=== PATIENT | female | born 1930 | race Caucasian/White ===

== ENCOUNTER → 2016-04-23 | Outpatient (CLI) | payer BC ==
[~2016-04-23] MED LIST: ACET1TAB84 PO; ASPEC81 PO; CALC500C70 PO; CHOL100010 PO; CLR10 PO; ESTCR PV; LEVO-217 PO; LISI-729 PO; LPT/40 PO; METO-217 PO; MOME50SP5 NAE; MULTTAB58 PO; NXM/40 PO; OMEG10007 PO; TIOTCAP INH; ZOLE5INJ IV
== END | disposition home or self-care (01) ==
LOC: C.LAB1850 11:01
PROVIDERS: ATTEND Internal Medicine Rheumatology
DX: M81.0 Age-related osteoporosis without current pathological fracture (principal); E61.8 Deficiency of other specified nutrient elements; S42.90XA Fracture of unspecified shoulder girdle, part unspecified, initial encounter for closed fracture; X58.XXXA Exposure to other specified factors, initial encounter

== ENCOUNTER → 2016-05-19 | Outpatient (CLI) | payer BC ==
--- NOTE | 2016-05-19 14:56 | DIAGNOSTIC IMAGING REPORT ---
CHEST 2 VIEWS ROUTINE CLINICAL HISTORY: R05 [id number] dyspnea COMPARISON STUDY: 06/19/2012 FINDINGS: Stable emphysematous change. Chronic apical fibrotic change. Minimal left basilar infiltrative process. Lungs otherwise appear clear. IMPRESSION: Small parenchymal infiltrate left base. This is superimposed upon chronic emphysematous and fibrotic changes. Electronically signed by: Mo Hilton M.D. 05/19/2016 2:55 PM Dictated Date/Time: 05/19/2016 2:54 PM
--- NOTE | 2016-05-19 15:43 | DIAGNOSTIC IMAGING REPORT ---
Venous Doppler left leg LEFT VENOUS DOPP LOWER EXT UNILAT CLINICAL HISTORY: Nodule pain TECHNIQUE: Real-time and venous Doppler COMPARISON STUDY: 09/28/2015 FINDINGS: Normal venous Doppler left leg. At the site of clinically palpable nodularity, there is no ultrasonic abnormality. IMPRESSION: 1. Normal venous Doppler left leg. 2. Patient describes a nodule medial aspect proximal calf. There is no ultrasonic abnormality at this site Electronically signed by: Mo Hilton M.D. 05/19/2016 3:42 PM Dictated Date/Time: 05/19/2016 3:41 PM
== END | disposition home or self-care (01) ==
LOC: C.ULTRBC 14:23
PROVIDERS: ATTEND Internal Medicine Geriatric Medicine
DX: M79.605 Pain in left leg (principal); R05 Cough

== ENCOUNTER → 2016-06-12 | Outpatient (CLI) | payer BC ==
--- NOTE | 2016-06-12 15:52 | DIAGNOSTIC IMAGING REPORT ---
CHEST 2 VIEWS ROUTINE HISTORY: Follow-up pneumonia. COMPARISON: Chest 05/19/2016. FINDINGS: No pleural effusions. No pneumothorax. There are few linear densities at the left lung base suggestive of scarring. No focal lung consolidations to suggest pneumonia. No evidence for pulmonary edema. The lungs remain hyperexpanded. The heart is borderline enlarged. Cholecystectomy. Old anterior wedge-shaped deformities within the upper thoracic spine. IMPRESSION: A few linear scarlike densities at the left lung base. No focal lung consolidations to suggest pneumonia. Electronically signed by: Kamari Monroe M.D. 06/12/2016 3:51 PM Dictated Date/Time: 06/12/2016 3:44 PM
== END | disposition home or self-care (01) ==
LOC: C.RADBC 15:21
PROVIDERS: ATTEND Internal Medicine
DX: J18.9 Pneumonia, unspecified organism (principal)

== ENCOUNTER → 2016-09-22 | Outpatient (CLI) | payer BC ==
--- NOTE | 2016-09-22 15:47 | DIAGNOSTIC IMAGING REPORT ---
LEFT KNEE 4 OR MORE VIEWS CLINICAL HISTORY: W19.XXXA [id number] Left knee [id number] trauma. Pain. COMPARISON: None. DISCUSSION: Mild chondrocalcinosis. Mild degenerative change all major joint compartments. Soft tissue vascular calcification. No well-defined acute bony abnormality. No significant joint effusion by plain film criteria. There is no evidence for soft tissue swelling. IMPRESSION: Mild degenerative change. Chondrocalcinosis. No acute bony abnormality. Electronically signed by: Mo Hilton M.D. 09/22/2016 3:46 PM Dictated Date/Time: 09/22/2016 3:45 PM
== END | disposition home or self-care (01) ==
LOC: C.RAD1850 15:14
PROVIDERS: ATTEND Nurse Practitioner Adult Health
DX: M25.562 Pain in left knee (principal); W19.XXXA Unspecified fall, initial encounter

== ENCOUNTER → 2016-10-29 | Outpatient (CLI) | payer BC ==
--- NOTE | 2016-10-29 12:43 | MAMMOGRAPHY REPORT ---
BILATERAL DIGITAL SCREENING MAMMOGRAM WITH CAD: 10/29/2016 CLINICAL HISTORY: Routine screening. Patient has no complaints. TECHNIQUE: Bilateral CC and MLO views were obtained. Current study was also evaluated with a Compute r Aided Detection (CAD) system. COMPARISON: Comparison is made to exams dated: 10/29/2015 mammogram, 10/23/2014 mammogram, 10/20/2013 m ammogram, 10/19/2012 mammogram, 10/15/2011 mammogram, and 10/04/2010 mammogram - [facility]ter. BREAST COMPOSITION: The tissue of both breasts is almost entirely fatty. FINDINGS: There are mild vascular calcifications in the breasts. No suspicious mass, architectural d istortion or cluster of microcalcifications is seen. IMPRESSION: ACR BI-RADS CATEGORY 1: NEGATIVE There is no mammographic evidence of malignancy. A 1 year screening mammogram is recommended. The pa tient will receive written notification of the results. Approximately 10% of breast cancers are not detected with mammography. A negative mammographic report should not delay biopsy if a clinically suggestive mass is present. Bhumi Pederson M.D. ay/:10/29/2016 09:37:42 Mail Officer: Heena TELLEZ(R)([place]andler)([place]), [facility] letter sent: Normal 1/2 BI-RADS Code: ACR BI-RADS Category 1: Negative
== END | disposition home or self-care (01) ==
LOC: C.MAMM 08:47
PROVIDERS: ATTEND Obstetrics & Gynecology
DX: Z12.31 Encounter for screening mammogram for malignant neoplasm of breast (principal)

== ENCOUNTER → 2016-10-30 | Outpatient (CLI) | payer BC ==
--- NOTE | 2016-10-30 14:37 | DIAGNOSTIC IMAGING REPORT ---
LEFT VENOUS DOPP LOWER EXT UNILAT CLINICAL HISTORY: 86 years-old Female presenting with LEFT LOWER LEG PAIN AND SWELLING. TECHNIQUE: Real-time grayscale and color and spectral Doppler ultrasound imaging of the veins of the left lower extremity was performed. Compression and augmentation were also utilized. COMPARISON: 05/19/2016. FINDINGS: Left: Common femoral vein: Patent. Femoral vein: Patent. Greater saphenous vein: Patent. Popliteal vein: Patent. Calf veins: Patent. Other: None. IMPRESSION: No evidence of deep venous thrombosis. Electronically signed by: Alf Shepherd M.D. 10/30/2016 2:36 PM Dictated Date/Time: 10/30/2016 2:35 PM
== END | disposition home or self-care (01) ==
LOC: C.ULTR 13:45
PROVIDERS: ATTEND Orthopaedic Surgery
DX: M79.662 Pain in left lower leg (principal); M79.89 Other specified soft tissue disorders

== ENCOUNTER → 2016-11-18 | Outpatient (CLI) | payer BC | END | disposition home or self-care (01) | LOC: C.LABBC 09:38 | PROVIDERS: ATTEND Internal Medicine Rheumatology | DX: M81.0 Age-related osteoporosis without current pathological fracture (principal); E61.8 Deficiency of other specified nutrient elements; K59.09 Other constipation ==

== ENCOUNTER → 2017-01-03 | Outpatient (CLI) | payer BC ==
[2017-01-03 12:38] LABS: URINE APPEARANCE CLEAR (CLEAR); URINE BILIRUBIN NEG (NEG); URINE COLOR YELLOW; URINE NITRITE NEG (NEG); URINE PH 7.5 (4.5-7.5); UROBILINOGEN NEG (NEG)
[2017-01-03 12:42] LABS: MANUAL MICROSCOPIC REQUIRED? NO; REVIEW REQ? NO
== END | disposition home or self-care (01) ==
LOC: C.LABBC 10:19
PROVIDERS: ATTEND Physician Assistant
DX: R30.0 Dysuria (principal)

== ENCOUNTER → 2017-01-07 | Outpatient (CLI) | payer BC ==
[2017-01-07 17:16] LABS: BASO % 0.4 %; BASO ABS # 0.03 K/uL (0-0.2); COMPLETE YES; HEMATOCRIT 34.2 % (37-47); IG% 0.1 %; LYMPH ABS # 2.69 K/uL (1.2-3.4); MEAN CELL VOLUME 88.6 fL (80-100); MEAN CORPUSCULAR HEMOGLOBIN 28.8 pg (25-34); MEAN CORPUSCULAR HGB CONC 32.5 g/dl (32-36); MEAN PLATELET VOLUME 9.7 fL (7.4-10.4); MONO % 9.1 %; NEUT % 46.4 %; PLATELET COUNT 297 K/uL (130-400); RED BLOOD COUNT 3.86 M/uL (4.2-5.4); WHITE BLOOD COUNT 6.73 K/uL (4.8-10.8)
== END ==
LOC: C.LABBC 15:09
PROVIDERS: ATTEND Physician Assistant
DX: R53.83 Other fatigue (principal)

== ENCOUNTER → 2017-01-14 | Outpatient (CLI) | payer BC ==
[2017-01-14 17:11] LABS: FERRITIN 35.7 ng/ml (8.0-388.0)
== END | disposition home or self-care (01) ==
LOC: C.LABBC 14:18
PROVIDERS: ATTEND Physician Assistant
DX: D64.9 Anemia, unspecified (principal)

== ENCOUNTER → 2017-02-23 | Outpatient (CLI) | payer BC | END | disposition home or self-care (01) | LOC: C.PAPS 10:00 | PROVIDERS: ATTEND Obstetrics & Gynecology | DX: N81.10 Cystocele, unspecified (principal) ==

== ENCOUNTER → 2017-03-09 | Outpatient (CLI) | payer BC ==
[2017-03-09 17:08] LABS: URINE APPEARANCE CLEAR (CLEAR); URINE BILIRUBIN NEG (NEG); URINE COLOR YELLOW; URINE EPITHELIAL CELL AUTO >30 /lpf (0-5); URINE NITRITE NEG (NEG); URINE SPECIFIC GRAVITY 1.023 (1.000-1.030); UROBILINOGEN NEG (NEG)
[2017-03-09 17:13] LABS: MANUAL MICROSCOPIC REQUIRED? NO; REVIEW REQ? NO
== END | disposition home or self-care (01) ==
LOC: C.LABBC 14:55
PROVIDERS: ATTEND Physician Assistant
DX: M19.90 Unspecified osteoarthritis, unspecified site (principal); R30.0 Dysuria

== ENCOUNTER → 2017-03-26 | Outpatient (CLI) | payer BC | END | disposition home or self-care (01) | LOC: C.LABSPEC 13:28 | PROVIDERS: ATTEND Obstetrics & Gynecology | DX: N89.8 Other specified noninflammatory disorders of vagina (principal) ==

== ENCOUNTER → 2017-07-02 | Outpatient (CLI) | payer BC | END | disposition home or self-care (01) | LOC: C.MAMM 09:44 | PROVIDERS: ATTEND Internal Medicine Rheumatology | DX: M81.0 Age-related osteoporosis without current pathological fracture (principal); Z87.310 Personal history of (healed) osteoporosis fracture; M25.562 Pain in left knee; M85.89 Other specified disorders of bone density and structure, multiple sites ==

== ENCOUNTER → 2017-11-02 | Outpatient (CLI) | payer BC ==
--- NOTE | 2017-11-02 15:42 | MAMMOGRAPHY REPORT ---
BILATERAL DIGITAL SCREENING MAMMOGRAM TOMOSYNTHESIS WITH CAD: 11/02/2017 CLINICAL HISTORY: Routine screening. Patient has no complaints. TECHNIQUE: The study was acquired using full field digital technology and interpreted from soft copy. Breast tomosynthesis in addition to standard 2D mammography was performed. Current study was also ev aluated with a Computer Aided Detection (CAD) system. COMPARISON: Comparison is made to exams dated: 10/29/2016 mammogram, 10/29/2015 mammogram, 10/23/2014 m ammogram, 10/20/2013 mammogram, 10/19/2012 mammogram, and 10/15/2011 mammogram - [facility]. BREAST COMPOSITION: The tissue of both breasts is almost entirely fatty. FINDINGS: There are mild vascular calcifications in the breasts. No suspicious mass, architectural di stortion or cluster of microcalcifications is seen. IMPRESSION: ACR BI-RADS CATEGORY 1: NEGATIVE There is no mammographic evidence of malignancy. A 1 year screening mammogram is recommended.( 019) The patient will receive written notification of the results. Some breast cancers are not detected with mammography. A negative mammographic report should not elizabeth y biopsy if a clinically suggestive mass is present. Bhumi Pederson M.D. ay/:11/02/2017 15:02:46 [employer] Hand: Emelyn Zelaya, [facility] letter sent: Normal 1/2 BI-RADS Code: ACR BI-RADS Category 1: Negative
== END | disposition home or self-care (01) ==
LOC: C.MAMM 09:07
PROVIDERS: ATTEND Internal Medicine
DX: Z12.31 Encounter for screening mammogram for malignant neoplasm of breast (principal)